=== PATIENT | female | born 1975 | race Caucasian/White ===

== ENCOUNTER 2018-07-11 11:35 | Emergency (ER) | payer BC, OTHER ==
[~2018-07-11] VITALS: Ht 154.9 cm; Wt 68.6 kg
[2018-07-11 12:05] VITALS: BP 134/90
--- NOTE | 2018-07-11 12:20 | NUR ---
43 YR OLD AAO X 4 FEMAIL WITH C/O RT FINGERS NUMBNESS X 2 WKS. DENIES PAIN OR INJURY, EQUAL STRONG PEST CONTROL SPECIALIST, ABLE TO CLOSE FIST WITHOUT DIFFICULTY HX; DENIES RX; DENIES
[2018-07-11] MEDS ORDERED: MECLIZINE 25 MG TAB PO ONE (13:25)
[2018-07-11] MEDS ORDERED: IBUPROFEN 600 MG TAB PO ONE (13:25)
[2018-07-11 16:14] VITALS: BP 126/88
--- NOTE | 2018-07-11 16:14 | NUR ---
Patient discharged with v/s stable. Written and verbal after care instructions given and explained. Patient alert, oriented and verbalized understanding of instructions. Ambulatory with steady gait. All questions addressed prior to discharge. ID band removed. Patient advised to follow up with PMD. Rx of Naprosyn and Antivert given. Patient educated on indication of medication including possible reaction and side effects. Opportunity to ask questions provided and answered.
== END 2018-07-11 16:14 | disposition home or self-care (01) ==
LOC: MED 11:35
DX: S63.501A Unspecified sprain of right wrist, initial encounter (principal); R42 Dizziness and giddiness; I10 Essential (primary) hypertension; X50.9XXA Other and unspecified overexertion or strenuous movements or postures, initial encounter; Y93.89 Activity, other specified; Y92.89 Other specified places as the place of occurrence of the external cause; Y99.8 Other external cause status
CPT/HCPCS: 29125; 73110; 99283; J8597; Q0092

== ENCOUNTER 2018-07-17 10:32 | Emergency (ER) | payer SELFPAY ==
[~2018-07-17] VITALS: Ht 154.9 cm; Wt 68.9 kg
[2018-07-17 10:37] VITALS: BP 137/84
--- NOTE | 2018-07-17 10:45 | NUR ---
43 Y F BIB SELF C/O LIGHTHEADED AND NAUSEA X 1 WEEK. PT STATES SHE MAY BE ANEMIC. DENIES FEVER, VOMITING, DIARRHEA. NEURO INTACT. AA0X4. BED IS DOWN, LOCKED, BED RAIL X 1, ERMD NOTIFIED OF PATIENT STATUS. RX: BENAZAPRIL, HYDROCHLOROTHIAZIDE HX: HTN
--- NOTE | 2018-07-17 10:46 | NUR ---
PT AMBULATED TO ER BED 11
--- NOTE | 2018-07-17 11:10 | NUR ---
DR TERRY AT BEDSIDE
[2018-07-17] MEDS ORDERED: NACL 0.9% 1,000 ML IV ONE (11:20)
[2018-07-17] MEDS ORDERED: MECLIZINE 25 MG TAB PO ONE (11:20)
[2018-07-17 11:44] LABS: BASOPHILS % (AUTO) 0.2 % (0.0-2.0); EOSINOPHILS % (AUTO) 0.3 % (0.0-4.0); HEMATOCRIT 37.6 % (36-48); HEMOGLOBIN 12.5 g/dL (12.0-16.0); LYMPHOCYTES # (AUTO) 1.1 K/uL (2.5-16.5); LYMPHOCYTES % (AUTO) 14.3 % (20.5-51.1); MEAN CORPUSCULAR HEMOGLOBIN 29 pg (27-31); MEAN CORPUSCULAR HGB CONC 33 g/dL (33-37); MEAN CORPUSCULAR VOLUME 86.6 fL (80-94); MONOCYTES # (AUTO) 0.6 K/uL (0.8-1.0); MONOCYTES % (AUTO) 7.5 % (1.7-9.3); NEUTROPHILS # (AUTO) 5.9 K/uL (1.8-7.7); NEUTROPHILS % (AUTO) 77.7 % (42.2-75.2); PLATELET COUNT (AUTO) 305 K/uL (140-450); RED BLOOD CELL COUNT(AUTO) 4.34 MIL/uL (4.20-5.40); RED CELL DISTRIBUTION WIDTH 14.1 % (11.6-13.7); WHITE BLOOD COUNT (AUTO) 7.5 K/uL (4.8-10.8)
[2018-07-17 13:07] LABS: ANION GAP 12.9 (8-16); CREATININE 0.8 mg/dL (0.6-1.3); POTASSIUM 3.9 mmol/L (3.5-5.1)
[2018-07-17 13:13] LABS: ALBUMIN 3.7 g/dL (3.4-5.0); TOTAL BILIRUBIN 0.4 mg/dL (0.0-1.0)
[2018-07-17 14:09] VITALS: BP 135/83
== END 2018-07-17 14:09 | disposition home or self-care (01) ==
LOC: MED 10:32
DX: R42 Dizziness and giddiness (principal); I10 Essential (primary) hypertension
CPT/HCPCS: 36415; 80053; 81002; 81025; 85025; 93005; 96360; 99283; J7030; J8597